=== PATIENT | female | born 1960 | race Caucasian/White ===

== ENCOUNTER 2017-08-26 10:19 | Emergency (ER) | payer MEDICAID ==
[~2017-08-26] VITALS: Ht 154.9 cm; Wt 50.0 kg
[~2017-08-26 10:19] MED LIST: ALBU8.5H8 IH; ASPI-611 PO; ATOR20TA66 PO; CARV3.122 PO; LOSA50TA37 PO
[2017-08-26 10:21] VITALS: BP 171/81
[2017-08-26] MEDS ORDERED: CLIN300C19 PO (10:34)
[2017-08-26] MEDS ORDERED: clindamycin 150mg capsule PO ONE (10:35)
== END 2017-08-26 10:42 | disposition home or self-care (01) ==
LOC: ER 10:20
DX: K04.7 Periapical abscess without sinus (principal); I25.10 Atherosclerotic heart disease of native coronary artery without angina pectoris; I10 Essential (primary) hypertension; I25.2 Old myocardial infarction; J44.9 Chronic obstructive pulmonary disease, unspecified; G89.29 Other chronic pain; F15.10 Other stimulant abuse, uncomplicated; F17.200 Nicotine dependence, unspecified, uncomplicated; Z56.0 Unemployment, unspecified; Z90.49 Acquired absence of other specified parts of digestive tract; Z98.890 Other specified postprocedural states; Z98.51 Tubal ligation status; Z88.0 Allergy status to penicillin; Z88.5 Allergy status to narcotic agent; Z79.82 Long term (current) use of aspirin; Z79.899 Other long term (current) drug therapy
CPT/HCPCS: 99283

== ENCOUNTER 2017-09-10 12:04 | Day surgery (SDC) | payer MEDICAID ==
[~2017-09-10] VITALS: Ht 154.9 cm; Wt 49.5 kg
[~2017-09-10 12:04] MED LIST changes: +CLIN300C19 PO
[2017-09-10 12:10] VITALS: BP 167/80
[2017-09-10] MEDS ORDERED: MIDAZolam 5mg/5ml vial ONE ×2 (12:16)
[2017-09-10] MEDS ORDERED: fentaNYL/PF 50MCG/1 ML 2ML syringe ONE ×2 (12:16→13:07)
[2017-09-10 13:24] VITALS: BP 139/54
[2017-09-10 13:34] VITALS: BP 103/52
[2017-09-10 13:44] VITALS: BP 115/60
[2017-09-10 13:54] VITALS: BP 114/64
== END 2017-09-10 14:10 | disposition home or self-care (01) ==
LOC: GI LAB 12:04
PROVIDERS: ATTEND Internal Medicine Gastroenterology
DX: K62.1 Rectal polyp (principal); K64.8 Other hemorrhoids; I10 Essential (primary) hypertension; F17.210 Nicotine dependence, cigarettes, uncomplicated; I25.2 Old myocardial infarction; I25.10 Atherosclerotic heart disease of native coronary artery without angina pectoris; J44.9 Chronic obstructive pulmonary disease, unspecified; F15.10 Other stimulant abuse, uncomplicated; Z79.82 Long term (current) use of aspirin; Z88.0 Allergy status to penicillin; Z88.5 Allergy status to narcotic agent; Z88.6 Allergy status to analgesic agent; Z98.51 Tubal ligation status; Z98.890 Other specified postprocedural states; Z90.49 Acquired absence of other specified parts of digestive tract; Z79.899 Other long term (current) drug therapy
CPT/HCPCS: 45380; 45385; 99152; 99153; J2250; J3010; J7030; A4620; G0500

== ENCOUNTER 2017-10-12 10:56 | Emergency (ER) | payer MEDICAID ==
[~2017-10-12] VITALS: Ht 154.9 cm; Wt 51.5 kg
[~2017-10-12 10:56] MED LIST changes: -ALBU8.5H8 IH; -CARV3.122 PO; -CLIN300C19 PO
[2017-10-12] MEDS ORDERED: ketorolac tromethamine 15mg/ml inj. IM ONE (11:45)
[2017-10-12] MEDS ORDERED: orphenadrine citrate 60mg/2ml inj. IM ONE (11:45)
[2017-10-12] MEDS ORDERED: HYDROcodone/acetaminophen 10/325mg tab PO ONE (13:25)
[2017-10-12] MEDS ORDERED: DICL100G15 TOP (13:25)
[2017-10-12] MEDS ORDERED: ondansetron 4mg rapidly disintigrating tab PO ONE (13:25)
[2017-10-12] MEDS ORDERED: CYCL-1 PO (13:25)
[2017-10-12 14:02] VITALS: BP 124/74
== END 2017-10-12 14:03 | disposition home or self-care (01) ==
LOC: ER 10:57
DX: S30.0XXA Contusion of lower back and pelvis, initial encounter (principal); M54.5 Low back pain; F17.200 Nicotine dependence, unspecified, uncomplicated; F15.90 Other stimulant use, unspecified, uncomplicated; I10 Essential (primary) hypertension; I25.10 Atherosclerotic heart disease of native coronary artery without angina pectoris; G89.29 Other chronic pain; I25.2 Old myocardial infarction; J44.9 Chronic obstructive pulmonary disease, unspecified; Z90.49 Acquired absence of other specified parts of digestive tract; Z98.890 Other specified postprocedural states; Z88.0 Allergy status to penicillin; Z88.6 Allergy status to analgesic agent; Z88.5 Allergy status to narcotic agent; Z79.82 Long term (current) use of aspirin; Z79.899 Other long term (current) drug therapy; Z56.0 Unemployment, unspecified; W01.0XXA Fall on same level from slipping, tripping and stumbling without subsequent striking against object, initial encounter; Y93.89 Activity, other specified; Y92.89 Other specified places as the place of occurrence of the external cause; Y99.8 Other external cause status
CPT/HCPCS: 72100; 72220; 96372; 99284; J1885; J2360

== ENCOUNTER 2018-01-09 15:24 | Emergency (ER) | payer MEDICAID ==
[~2018-01-09] VITALS: Ht 154.9 cm; Wt 54.8 kg
[~2018-01-09 15:24] MED LIST changes: +CYCL-1 PO; +DICL100G15 TOP; +LOSA50TA21 PO; -LOSA50TA37 PO
[2018-01-09 15:45] VITALS: BP 167/65
[2018-01-09] MEDS ORDERED: dexamethasone sod phosphate 10mg/ml inj IM STA (16:01)
[2018-01-09] MEDS ORDERED: CYCL-1 PO (16:03)
[2018-01-09] MEDS ORDERED: METH4TAB3 PO (16:03)
[2018-01-09] MEDS ORDERED: ketorolac trometh inj. 60 MG/2 ML VIAL IM ONE (16:05)
== END 2018-01-09 16:33 | disposition home or self-care (01) ==
LOC: ER 15:24
DX: M54.12 Radiculopathy, cervical region (principal); R20.2 Paresthesia of skin; I25.10 Atherosclerotic heart disease of native coronary artery without angina pectoris; I10 Essential (primary) hypertension; G89.29 Other chronic pain; F41.9 Anxiety disorder, unspecified; F32.9 Major depressive disorder, single episode, unspecified; F15.10 Other stimulant abuse, uncomplicated; Z90.49 Acquired absence of other specified parts of digestive tract; Z56.0 Unemployment, unspecified; Z98.51 Tubal ligation status; Z88.0 Allergy status to penicillin; Z88.5 Allergy status to narcotic agent; Z79.82 Long term (current) use of aspirin
CPT/HCPCS: 96372; 99284; J1100; J1885

== ENCOUNTER 2018-04-05 10:20 | Emergency (ER) | payer MEDICAID ==
[~2018-04-05] VITALS: Ht 154.9 cm; Wt 53.0 kg
[~2018-04-05 10:20] MED LIST changes: -LOSA50TA21 PO; +LOSA50TA64 PO; +METH4TAB3 PO
[2018-04-05 10:40] VITALS: BP 175/63
[2018-04-05 11:11] LABS: BASOPHILS % (AUTO) 0.5 % (0-1); EOSINOPHILS # (AUTO) 0.2 X10'3 (0-0.9); HEMATOCRIT 43.6 % (35.0-45.0); HEMOGLOBIN 14.4 g/dl (12.0-16.0); LYMPHOCYTES # (AUTO) 3.2 X10'3 (1.1-4.8); LYMPHOCYTES % (AUTO) 45.6 % (21-51); MEAN CORPUSCULAR HEMOGLOBIN 29.6 PG (27.0-31.0); MEAN CORPUSCULAR HGB CONC 33.1 % (33.0-36.5); MEAN CORPUSCULAR VOLUME 89.4 FL (78-98); MEAN PLATELET VOLUME 9.3 FL (7.4-10.4); MONOCYTES # (AUTO) 0.5 X10'3 (0-0.9); MONOCYTES % (AUTO) 6.8 % (2-12); NEUTROPHILS % (AUTO) 44.1 % (42-75); PLATELET COUNT 220 X10'3 (140-440); RED BLOOD COUNT 4.88 X10'6 (4.20-5.60); RED CELL DISTRIBUTION WIDTH 13.4 % (11.5-14.5); WHITE BLOOD COUNT 6.9 X10'3 (4.5-11.0)
[2018-04-05 11:24] LABS: ALANINE AMINOTRANSFERASE 36 U/L (12-78); ALBUMIN 3.8 G/DL (3.4-5.0); ALBUMIN/GLOBULIN RATIO 1.1 (1.1-1.5); ALKALINE PHOSPHATASE 83 IU/L (46-116); ANION GAP 8 (8-16); ASPARTATE AMINO TRANSFERASE 20 U/L (10-37); BILIRUBIN,TOTAL 0.4 MG/DL (0.1-1.0); BLOOD UREA NITROGEN 16 MG/DL (7-18); BUN/CREATININE RATIO 20.8 (6.6-38.0); CHLORIDE 104 MMOL/L (99-107); CREATININE 0.77 MG/DL (0.40-0.90); GLUCOSE 111 MG/DL (70-104); POTASSIUM 3.8 MMOL/L (3.5-5.1); SODIUM 140 MMOL/L (135-145); TOTAL CARBON DIOXIDE 27.7 MMOL/L (24-32); TOTAL PROTEIN 7.4 G/DL (6.4-8.2); eGFR 77 ML/MIN
[2018-04-05 11:25] LABS: PARTIAL THROMBOPLASTIN TIME 29 SECONDS (22-32); PROTHROMBIN TIME 10.1 SECONDS (9.0-12.0)
== END 2018-04-05 12:08 | disposition home or self-care (01) ==
LOC: ER 10:21
DX: I10 Essential (primary) hypertension (principal); J44.9 Chronic obstructive pulmonary disease, unspecified; I25.10 Atherosclerotic heart disease of native coronary artery without angina pectoris; G89.29 Other chronic pain; M54.2 Cervicalgia; F41.9 Anxiety disorder, unspecified; F32.9 Major depressive disorder, single episode, unspecified; F17.200 Nicotine dependence, unspecified, uncomplicated; F15.10 Other stimulant abuse, uncomplicated; Z56.0 Unemployment, unspecified; Z87.440 Personal history of urinary (tract) infections; Z88.0 Allergy status to penicillin; Z88.5 Allergy status to narcotic agent; Z88.6 Allergy status to analgesic agent; Z90.49 Acquired absence of other specified parts of digestive tract; Z79.82 Long term (current) use of aspirin; Z85.43 Personal history of malignant neoplasm of ovary; Z87.01 Personal history of pneumonia (recurrent)
CPT/HCPCS: 36415; 71045; 80053; 84484; 85025; 85610; 85730; 93005; 99284

== ENCOUNTER 2019-07-07 01:23 | Emergency (ER) | payer MEDICAID ==
[~2019-07-07] VITALS: Ht 154.9 cm; Wt 55.0 kg
[2019-07-07] MEDS ORDERED: ketorolac trometh inj. 60 MG/2 ML VIAL IM ONE (01:25)
[2019-07-07] MEDS ORDERED: CYCL-1 PO (01:28)
[2019-07-07] MEDS ORDERED: TRAM50TA2 PO (01:28)
[2019-07-07] MEDS ORDERED: HYDROcodone/acetaminophen 5mg/325mg tablet PO ONE (01:55)
[2019-07-07 02:00] VITALS: BP 181/96
== END 2019-07-07 02:02 | disposition home or self-care (01) ==
LOC: ER 01:24
DX: S46.812A Strain of other muscles, fascia and tendons at shoulder and upper arm level, left arm, initial encounter (principal); I25.10 Atherosclerotic heart disease of native coronary artery without angina pectoris; I10 Essential (primary) hypertension; I25.2 Old myocardial infarction; J44.9 Chronic obstructive pulmonary disease, unspecified; G89.29 Other chronic pain; F41.9 Anxiety disorder, unspecified; F32.9 Major depressive disorder, single episode, unspecified; F15.90 Other stimulant use, unspecified, uncomplicated; Z90.49 Acquired absence of other specified parts of digestive tract; Z98.51 Tubal ligation status; Z56.0 Unemployment, unspecified; Z85.43 Personal history of malignant neoplasm of ovary; Z88.0 Allergy status to penicillin; Z88.5 Allergy status to narcotic agent; Z88.6 Allergy status to analgesic agent; Z79.82 Long term (current) use of aspirin; Z79.899 Other long term (current) drug therapy; W18.39XA Other fall on same level, initial encounter; Y93.89 Activity, other specified; Y92.89 Other specified places as the place of occurrence of the external cause; Y99.8 Other external cause status
CPT/HCPCS: 73030; 96372; 99284; J1885

== ENCOUNTER 2019-09-16 15:52 | Emergency (ER) | payer MEDICAID ==
[~2019-09-16] VITALS: Ht 154.9 cm; Wt 53.0 kg
[2019-09-16 16:07] VITALS: BP 125/73
[2019-09-16] MEDS ORDERED: cyclobenzaprine 10mg tablet PO ONE (17:50)
[2019-09-16] MEDS ORDERED: LIDO700A32 TOP (18:46)
[2019-09-16] MEDS ORDERED: GABA300C PO (18:46)
== END 2019-09-16 18:57 | disposition home or self-care (01) ==
LOC: ER 15:52
DX: M54.12 Radiculopathy, cervical region (principal); R51 Headache; I25.10 Atherosclerotic heart disease of native coronary artery without angina pectoris; I10 Essential (primary) hypertension; I25.2 Old myocardial infarction; J44.9 Chronic obstructive pulmonary disease, unspecified; G89.29 Other chronic pain; F41.9 Anxiety disorder, unspecified; F15.90 Other stimulant use, unspecified, uncomplicated; Z90.49 Acquired absence of other specified parts of digestive tract; Z98.51 Tubal ligation status; Z56.0 Unemployment, unspecified; Z88.0 Allergy status to penicillin; Z88.5 Allergy status to narcotic agent; Z79.82 Long term (current) use of aspirin; Z79.899 Other long term (current) drug therapy
CPT/HCPCS: 20553; 99284

== ENCOUNTER 2022-01-04 17:12 | Inpatient (IN) | payer MEDICAID ==
[~2022-01-04] VITALS: Ht 154.9 cm; Wt 50.0 kg
[~2022-01-04 17:12] MED LIST changes: +GABA300C PO; +LIDO700A32 TOP
[2022-01-04 17:42] LABS: BASOPHILS # (AUTO) 0.1 X10'3 (0-0.2); BASOPHILS % (AUTO) 0.8 % (0-1); EOSINOPHILS # (AUTO) 0.2 X10'3 (0-0.9); EOSINOPHILS % (AUTO) 1.5 % (0-6); HEMATOCRIT 46.1 % (35.0-45.0); HEMOGLOBIN 15.4 g/dl (12.0-16.0); LYMPHOCYTES % (AUTO) 26.6 % (21-51); MEAN CORPUSCULAR HGB CONC 33.5 g/dL (33.0-36.5); MEAN CORPUSCULAR VOLUME 89.7 FL (78-98); MEAN PLATELET VOLUME 8.8 FL (7.4-10.4); MONOCYTES # (AUTO) 0.7 X10'3 (0-0.9); MONOCYTES % (AUTO) 5.9 % (2-12); NEUTROPHILS # (AUTO) 7.3 X10'3 (1.8-7.7); NEUTROPHILS % (AUTO) 65.2 % (42-75); PLATELET COUNT 205 X10'3 (140-440); RED BLOOD COUNT 5.14 X10'6 (4.20-5.60); RED CELL DISTRIBUTION WIDTH 14.1 % (11.5-14.5); WHITE BLOOD COUNT 11.2 X10'3 (4.5-11.0)
[2022-01-04 17:59] LABS: GLUCOSE 103 MG/DL (70-104)
[2022-01-04 18:00] LABS: ALANINE AMINOTRANSFERASE 27 U/L (12-78); ALBUMIN 3.9 G/DL (3.4-5.0); ALBUMIN/GLOBULIN RATIO 1.2 (1.1-1.5); ALKALINE PHOSPHATASE 85 IU/L (46-116); ANION GAP 11 (8-16); ASPARTATE AMINO TRANSFERASE 20 U/L (10-37); BILIRUBIN,TOTAL 0.3 MG/DL (0.1-1.0); BLOOD UREA NITROGEN 11 MG/DL (7-18); BUN/CREATININE RATIO 18.3 (6.6-38.0); CALCIUM 9.4 MG/DL (8.5-10.1); CHLORIDE 108 MMOL/L (99-107); POTASSIUM 3.7 MMOL/L (3.5-5.1); SODIUM 143 MMOL/L (135-145); TOTAL CARBON DIOXIDE 23.9 MMOL/L (24-32); TOTAL PROTEIN 7.2 G/DL (6.4-8.2); eGFR > 90 ML/MIN
[2022-01-04 18:12] LABS: LIPASE 71 U/L (73-393)
[2022-01-04] MEDS ORDERED: LORazepam 2 mg/ml vial IV ONE (18:15)
[2022-01-04] MEDS ORDERED: metoprolol tartrate 50mg tablet PO ONE (18:30)
[2022-01-04] MEDS ORDERED: aspirin 81mg tab.chew PO ONE (18:30)
[2022-01-04 18:35] LABS: D-DIMER < 0.19 MG/L FEU (0-0.50)
--- NOTE | 2022-01-04 19:00 | NUR ---
NITRO TAB ADMINISTERED SL AT 1900, PT REFUSED ANY ADDITIONAL DOSES, REGARDLESS OF EDUCATION OF IMPORTANCE
[2022-01-04] MEDS: nitroGLYCERIN 0.4mg SUBLingual tab SL PRN ×5 (19:02→21:01)
[2022-01-04] MEDS ORDERED: TRAM50TA2 PO (19:19)
[2022-01-04] MEDS ORDERED: heparin 25,000 UNIT/250ml bag 250 ML IV PRN (19:55)
[2022-01-04] MEDS ORDERED: heparin 10,000 units/1 ML INJ IV ONE (19:55)
[2022-01-04] MEDS ORDERED: ondansetron/PF 4mg/2ml inj IV ONE (20:00)
--- NOTE | 2022-01-04 20:15 | NUR ---
PT AGREED TO NITRO TAB SL FOR CONT C/O LEFT ARM/CHEST PAIN -11/02. NITRO 04MG TAB SL GIVEN AT 2014, 2019, 2024 WITH SL IMPROVEMENT OF LEFT ARM/CHEST PAIN
[2022-01-04 20:17] LABS: APTT 29 SECONDS (22-32)
[2022-01-04] MEDS: morphine 4 MG/ML inj SYRINge IV PRN (20:19)
[2022-01-04] MEDS ORDERED: temazepam 15mg capsule PO PRN (21:00)
[2022-01-04] MEDS ORDERED: iohexol 350MG/ML 100ml bottle IV ONE (21:43)
[2022-01-04] MEDS ORDERED: bisacodyl 10mg suppository rectal RC PRN (23:50)
[2022-01-04] MEDS ORDERED: diphenhydrAMINE 25mg capsule PO PRN (23:50)
[2022-01-04] MEDS ORDERED: acetaminophen 325mg tablet PO PRN ×2 (23:50)
[2022-01-04] MEDS ORDERED: diphenhydrAMINE 50 mg/ml inj IV PRN (23:50)
[2022-01-04] MEDS ORDERED: magnesium hydroxide 30ml (MOM) UD suspension PO PRN (23:50)
[2022-01-04] MEDS ORDERED: ondansetron/PF 4mg/2ml inj IV PRN (23:50)
[2022-01-04] MEDS ORDERED: HYDROcodone/acetaminophen 5mg/325mg tablet PO PRN (23:50)
[2022-01-04] MEDS ORDERED: mag hydrox/Alum hydrox/simeth 30ml oral suspension PO PRN (23:50)
[2022-01-04] MEDS ORDERED: acetaminophen 650mg rectal suppository RC PRN (23:50)
[2022-01-04] MEDS ORDERED: morphine 2 MG/ML inj. syringe IV PRN (23:50)
[2022-01-04] MEDS ORDERED: dextrose 5%-1/2 normal saline 1,000 ML IV SCH (23:50)
[2022-01-05] VITALS (10 sets, daily range): BP systolic 120–167; BP diastolic 57–76
[2022-01-05 00:27] LABS: MAGNESIUM 1.9 MG/DL (1.5-2.4); PHOSPHORUS 3.6 MG/DL (2.3-4.5)
[2022-01-05 02:34] LABS: BASOPHILS # (AUTO) 0.1 X10'3 (0-0.2); BASOPHILS % (AUTO) 0.8 % (0-1); EOSINOPHILS # (AUTO) 0.4 X10'3 (0-0.9); EOSINOPHILS % (AUTO) 3.8 % (0-6); HEMATOCRIT 42.2 % (35.0-45.0); HEMOGLOBIN 14.3 g/dl (12.0-16.0); LYMPHOCYTES # (AUTO) 4.2 X10'3 (1.1-4.8); LYMPHOCYTES % (AUTO) 38.8 % (21-51); MEAN CORPUSCULAR HEMOGLOBIN 30.3 PG (27.0-31.0); MEAN CORPUSCULAR HGB CONC 33.9 g/dL (33.0-36.5); MEAN CORPUSCULAR VOLUME 89.6 FL (78-98); MEAN PLATELET VOLUME 8.6 FL (7.4-10.4); MONOCYTES # (AUTO) 0.7 X10'3 (0-0.9); MONOCYTES % (AUTO) 6.2 % (2-12); NEUTROPHILS # (AUTO) 5.5 X10'3 (1.8-7.7); NEUTROPHILS % (AUTO) 50.4 % (42-75); PLATELET COUNT 198 X10'3 (140-440); RED BLOOD COUNT 4.71 X10'6 (4.20-5.60); RED CELL DISTRIBUTION WIDTH 14.4 % (11.5-14.5); WHITE BLOOD COUNT 10.9 X10'3 (4.5-11.0)
[2022-01-05] MEDS: morphine 4 MG/ML inj SYRINge IV PRN (02:47)
[2022-01-05 02:49] LABS: ALANINE AMINOTRANSFERASE 24 U/L (12-78); ALBUMIN 3.1 G/DL (3.4-5.0); ALBUMIN/GLOBULIN RATIO 1.1 (1.1-1.5); ALKALINE PHOSPHATASE 78 IU/L (46-116); ANION GAP 7 (8-16); ASPARTATE AMINO TRANSFERASE 21 U/L (10-37); BILIRUBIN,TOTAL 0.3 MG/DL (0.1-1.0); BLOOD UREA NITROGEN 16 MG/DL (7-18); BUN/CREATININE RATIO 20.3 (6.6-38.0); CALCIUM 8.7 MG/DL (8.5-10.1); CHLORIDE 110 MMOL/L (99-107); CREATININE 0.79 MG/DL (0.40-0.90); GLUCOSE 144 MG/DL (70-104); POTASSIUM 3.5 MMOL/L (3.5-5.1); SODIUM 143 MMOL/L (135-145); TOTAL CARBON DIOXIDE 26.5 MMOL/L (24-32); eGFR 74 ML/MIN
--- NOTE | 2022-01-05 06:49 | NUR ---
Report given to YASIR Dill in PCU.
--- NOTE | 2022-01-05 06:49 | NUR ---
Patient in room ED 11. I have received report from Thalia and had the opportunity to ask questions and assume patient care.
[2022-01-05] MEDS: morphine 2 MG/ML inj. syringe IV PRN ×2 (07:22→12:22)
[2022-01-05] MEDS ORDERED: pantoprazole 40mg Tablet.DR PO SCH (07:30)
[2022-01-05] MEDS ORDERED: nicotine 21mg patch - 24 hr TD SCH (08:00)
[2022-01-05] MEDS ORDERED: docusate sod 100mg capsule PO SCH (08:00)
[2022-01-05] MEDS ORDERED: regadenoson 0.4mg/5ml syringe IV PRN (08:50)
[2022-01-05] MEDS ORDERED: metoprolol tartrate 1mg/ml inj IV PRN (08:50)
[2022-01-05] MEDS ORDERED: aminophylline 500mg/20ml vial IV PRN (08:50)
[2022-01-05] MEDS ORDERED: nitroGLYCERIN 0.4mg SUBLingual tab SL PRN (08:50)
[2022-01-05] MEDS ORDERED: HYDR-3965 PO (13:40)
== END 2022-01-05 15:20 | disposition home or self-care (01) | DRG 351 ==
LOC: ER 17:12 → ED HOLD 23:51 → PCU 3S 01-05 07:23
PROVIDERS: ADMIT Family Medicine; ATTEND Internal Medicine
PROC: B32T1ZZ Computerized Tomography (CT Scan) of Left Pulmonary Artery using Low Osmolar Contrast (ICD-10-PCS; 2022-01-04)
PROC: B3201ZZ Computerized Tomography (CT Scan) of Thoracic Aorta using Low Osmolar Contrast (ICD-10-PCS; 2022-01-04)
PROC: B32S1ZZ Computerized Tomography (CT Scan) of Right Pulmonary Artery using Low Osmolar Contrast (ICD-10-PCS; 2022-01-04)
PROC: B4201ZZ Computerized Tomography (CT Scan) of Abdominal Aorta using Low Osmolar Contrast (ICD-10-PCS; 2022-01-04)
PROC: B4241ZZ Computerized Tomography (CT Scan) of Superior Mesenteric Artery using Low Osmolar Contrast (ICD-10-PCS; 2022-01-04)
PROC: B4281ZZ Computerized Tomography (CT Scan) of Bilateral Renal Arteries using Low Osmolar Contrast (ICD-10-PCS; 2022-01-04)
PROC: B42C1ZZ Computerized Tomography (CT Scan) of Pelvic Arteries using Low Osmolar Contrast (ICD-10-PCS; 2022-01-04)
PROC: B42H1ZZ Computerized Tomography (CT Scan) of Bilateral Lower Extremity Arteries using Low Osmolar Contrast (ICD-10-PCS; 2022-01-04)
PROC: B4211ZZ Computerized Tomography (CT Scan) of Celiac Artery using Low Osmolar Contrast (ICD-10-PCS; 2022-01-04)
PROC: 4A02XM4 Measurement of Cardiac Total Activity, External Approach (ICD-10-PCS; principal; 2022-01-05)
PROC: 3E033HZ Introduction of Radioactive Substance into Peripheral Vein, Percutaneous Approach (ICD-10-PCS; 2022-01-05)
DX: M19.011 Primary osteoarthritis, right shoulder (principal); I21.4 Non-ST elevation (NSTEMI) myocardial infarction; I50.23 Acute on chronic systolic (congestive) heart failure; M75.51 Bursitis of right shoulder; E78.5 Hyperlipidemia, unspecified; I11.0 Hypertensive heart disease with heart failure; E86.1 Hypovolemia; I35.1 Nonrheumatic aortic (valve) insufficiency; I73.9 Peripheral vascular disease, unspecified; J44.9 Chronic obstructive pulmonary disease, unspecified; K42.9 Umbilical hernia without obstruction or gangrene; K76.0 Fatty (change of) liver, not elsewhere classified; F15.90 Other stimulant use, unspecified, uncomplicated; G89.4 Chronic pain syndrome; F32.A Depression, unspecified; F41.9 Anxiety disorder, unspecified; M54.9 Dorsalgia, unspecified; I16.1 Hypertensive emergency; I25.10 Atherosclerotic heart disease of native coronary artery without angina pectoris; I25.2 Old myocardial infarction; Z56.0 Unemployment, unspecified; Z72.0 Tobacco use; Z79.82 Long term (current) use of aspirin; Z79.899 Other long term (current) drug therapy; Z82.49 Family history of ischemic heart disease and other diseases of the circulatory system; Z85.41 Personal history of malignant neoplasm of cervix uteri; Z85.43 Personal history of malignant neoplasm of ovary; Z88.0 Allergy status to penicillin; Z88.5 Allergy status to narcotic agent; Z90.49 Acquired absence of other specified parts of digestive tract; Z98.51 Tubal ligation status; Z71.6 Tobacco abuse counseling
CPT/HCPCS: 36415; 71045; 71275; 73030; 74174; 78452; 80053; 83690; 83735; 83880; 84100; 84443; 84484; 85025; 85379; 85730; 93017; 93306; 99285; A9500; G0378; J1644; J2060; J2270; J2405; J2785; J3490; J7042; Q9967

== ENCOUNTER 2022-07-25 00:15 | Emergency (ER) | payer MEDICAID ==
[~2022-07-25] VITALS: Ht 162.6 cm; Wt 65.9 kg
[~2022-07-25 00:15] MED LIST changes: -CYCL-1 PO; -DICL100G15 TOP; -GABA300C PO; +HYDR-3965 PO; -LIDO700A32 TOP; -METH4TAB3 PO; +TRAM50TA2 PO
[2022-07-25] MEDS ORDERED: acetaminophen 325mg tablet PO ONE (00:40)
[2022-07-25] MEDS ORDERED: ondansetron 4mg rapidly disintigrating tab PO ONE (00:40)
[2022-07-25] MEDS ORDERED: ibuprofen tablet 400 MG TABLET PO ONE (00:40)
[2022-07-25] MEDS ORDERED: HYDROcodone/acetaminophen 5mg/325mg tablet PO ONE (00:40)
[2022-07-25 00:49] LABS: ALANINE AMINOTRANSFERASE 38 U/L (12-78); ALBUMIN 3.8 G/DL (3.4-5.0); ALBUMIN/GLOBULIN RATIO 1.2 (1.1-1.5); ALKALINE PHOSPHATASE 101 IU/L (46-116); ANION GAP 9 (8-16); ASPARTATE AMINO TRANSFERASE 20 U/L (10-37); BILIRUBIN,TOTAL 0.3 MG/DL (0.1-1.0); BLOOD UREA NITROGEN 15 MG/DL (7-18); BUN/CREATININE RATIO 21.7 (10.0-20.0); CALCIUM 9.6 MG/DL (8.5-10.1); CHLORIDE 110 MMOL/L (99-107); CREATININE 0.69 MG/DL (0.40-0.90); GLUCOSE 132 MG/DL (70-104); POTASSIUM 3.3 MMOL/L (3.5-5.1); SODIUM 147 MMOL/L (135-145); eGFR 86 ML/MIN
--- NOTE | 2022-07-25 00:49 | NUR ---
Pt to CT at this time
[2022-07-25 00:56] LABS: ETHANOL < 0.010 GM/DL (0.0-0.010); MAGNESIUM 1.9 MG/DL (1.5-2.4)
[2022-07-25 01:18] LABS: APTT 26 SECONDS (22-32)
[2022-07-25 01:22] LABS: BASOPHILS # (AUTO) 0.1 X10'3 (0-0.2); BASOPHILS % (AUTO) 0.8 % (0-1); EOSINOPHILS # (AUTO) 0.3 X10'3 (0-0.9); EOSINOPHILS % (AUTO) 1.9 % (0-6); HEMATOCRIT 42.5 % (35.0-45.0); HEMOGLOBIN 14.2 g/dl (12.0-16.0); LYMPHOCYTES # (AUTO) 4.9 X10'3 (1.1-4.8); LYMPHOCYTES % (AUTO) 32.3 % (21-51); MEAN CORPUSCULAR HEMOGLOBIN 30.4 PG (27.0-31.0); MEAN CORPUSCULAR HGB CONC 33.4 g/dL (33.0-36.5); MEAN CORPUSCULAR VOLUME 90.9 FL (78-98); MONOCYTES % (AUTO) 6.5 % (2-12); NEUTROPHILS # (AUTO) 8.9 X10'3 (1.8-7.7); NEUTROPHILS % (AUTO) 58.5 % (42-75); PLATELET COUNT 239 X10'3 (140-440); RED BLOOD COUNT 4.68 X10'6 (4.20-5.60); RED CELL DISTRIBUTION WIDTH 14.7 % (11.5-14.5); WHITE BLOOD COUNT 15.1 X10'3 (4.5-11.0)
--- NOTE | 2022-07-25 01:53 | NUR ---
Report given to YASIR Healy
[2022-07-25] MEDS ORDERED: potassium cl 20mEq in 1/2 NS 1,000 ML IV ONE (01:55)
[2022-07-25] MEDS ORDERED: KEP500T PO (04:04)
--- NOTE | 2022-07-25 04:19 | NUR ---
pt ready for d/c. unable to get into contact with relatives for transportation. left voicemail on cell phone.
[2022-07-25 04:51] VITALS: BP 147/78
== END 2022-07-25 04:52 | disposition home or self-care (01) ==
LOC: ER 00:17
DX: R56.9 Unspecified convulsions (principal); I10 Essential (primary) hypertension; J44.9 Chronic obstructive pulmonary disease, unspecified; F15.20 Other stimulant dependence, uncomplicated; Z88.0 Allergy status to penicillin; Z88.5 Allergy status to narcotic agent; Z88.6 Allergy status to analgesic agent; Z90.49 Acquired absence of other specified parts of digestive tract; Z98.51 Tubal ligation status; Z56.0 Unemployment, unspecified
CPT/HCPCS: 36415; 70450; 71045; 80053; 80320; 83735; 83880; 84484; 85025; 85610; 85730; 93005; 96360; 96361; 99285; J3480

== ENCOUNTER 2024-05-15 21:20 | Emergency (ER) | payer MEDICAID ==
[~2024-05-15] VITALS: Ht 154.9 cm; Wt 68.0 kg
[~2024-05-15 21:20] MED LIST changes: +KEP500T PO
[2024-05-15 21:28] VITALS: BP 212/97; PULSE 103; TEMP 98.6; O2SAT 96
[2024-05-15 23:55] VITALS: RESP 16
== END 2024-05-16 01:21 | disposition left against medical advice (07) ==
LOC: ER 21:20
DX: I10 Essential (primary) hypertension (principal); Z53.21 Procedure and treatment not carried out due to patient leaving prior to being seen by health care provider
CPT/HCPCS: 93005

== ENCOUNTER 2024-07-15 14:36 | Outpatient (CLI) | payer MEDICAID | END 2024-07-15 23:59 | disposition home or self-care (01) | LOC: RAD 14:36 | PROVIDERS: ATTEND Family Medicine | DX: R06.02 Shortness of breath (principal); M54.6 Pain in thoracic spine | CPT/HCPCS: 72074; 93306 ==

== ENCOUNTER 2024-07-28 21:33 | Emergency (ER) | payer MEDICAID ==
[~2024-07-28] VITALS: Ht 154.9 cm; Wt 54.3 kg
[2024-07-28 21:54] LABS: BASOPHILS # (AUTO) 0.1 X10'3 (0-0.2); BASOPHILS % (AUTO) 0.7 % (0-1); EOSINOPHILS # (AUTO) 0.2 X10'3 (0-0.9); HEMATOCRIT 39.4 % (35.0-45.0); HEMOGLOBIN 13.4 g/dl (12.0-16.0); LYMPHOCYTES # (AUTO) 3.6 X10'3 (1.1-4.8); MEAN CORPUSCULAR HGB CONC 33.9 g/dL (33.0-36.5); MEAN CORPUSCULAR VOLUME 88.6 FL (78-98); MEAN PLATELET VOLUME 8.1 FL (7.4-10.4); MONOCYTES # (AUTO) 0.8 X10'3 (0-0.9); MONOCYTES % (AUTO) 8.7 % (2-12); NEUTROPHILS % (AUTO) 51.6 % (42-75); PLATELET COUNT 347 X10'3 (140-440); RED BLOOD COUNT 4.45 X10'6 (4.20-5.60); RED CELL DISTRIBUTION WIDTH 13.9 % (11.5-14.5); WHITE BLOOD COUNT 9.6 X10'3 (4.5-11.0)
--- NOTE | 2024-07-28 21:54 | Physician Documentation ---
History of Present Illness ~ Chief Complaint: Difficulty Breathing Stated Complaint: SOB Time Seen by MD: 21:49 Primary Medical Doctor: [facility] HPI Patient presents to the emergency room for evaluation of shortness of breath and dizziness. Patient was history of aortic stenosis in his working with her hand paster regarding placement. She was seen here recently and had an echo performed which showed a good ejection fraction. Patient was states she was lying on her couch when she suddenly began feeling short of breath. She also endorses some right upper extremity numbness however this comes and goes and it was located in her median distribution with a positive Tinel's sign. No weakness. Regarding the patient was dizziness she denies symptoms vertigo but endorses symptoms of feeling generally weak like her legs are going to give out and she would pass out. Patient was have history of high blood pressure but reports no changes of her medications. Denies fevers dysuria cough or abdominal pain. Medication Reconciliation Allergies: Coded Allergies: Penicillins (Unverified Allergy, Unknown, 07/28/24) codeine (Verified Allergy, Unknown, 07/28/24) ibuprofen (Verified Adverse Reaction, Intermediate, VOMITING, 07/28/24) Scheduled Aspirin (Aspir 81), 1 TAB PO DAILY, (Reported) Atorvastatin Calcium (LIPITOR tablet), 20 MG PO DAILY, (Reported) Levetiracetam (Keppra), 1 TAB PO Q12H Losartan Potassium (Losartan Potassium), 1 TAB PO DAILY, (Reported) Tramadol HCl (Tramadol HCl), 1 TABLET PO BID, (Reported) Scheduled PRN Hydrocodone Bit/Acetaminophen 5/325 MG ([place] 5/325 MG), 1 TAB PO Q6H PRN for pain Past Medical History Past Medical History: Coronary Artery Disease, Hypertension, Myocardial Infarction, COPD, Pneumonia, UTI, Chronic Pain, Chronic Back Pain, Extremity Fracture, Cervical Cancer/Dysplasia, Ovarian Cancer, Anxiety, Depression Past Surgical History: cholecystectomy, orthopedic surgeries, tubal ligation Other Past Family History: strong cardiac F.H. father 3xcabg, brother of [place] Alcohol Use: None Drug Use: methamphetamine Lives with: Spouse Lives In: Home Occupation: unemployed Review of Systems ROS All review of systems negative except as per HPI Physical Exam Vital Signs: Temperature: 97.8, Source: Oral, Heart Rate: 72, Respiratory Rate: 21, BP: 92/59, Pulse Oximetry: 100, Weight: 54.320 Oxygen Flow Rate: 0 Physical Exam General: Patient is awake, alert, oriented x4 in no acute distress Head: Normocephalic and atraumatic. Eyes: Conjunctival normal. EOMI. PERRL. ENT: Mucous membranes moist. Neck: Supple, trachea is midline. Chest: Clear to auscultation bilaterally without rales, rhonchi, or wheezes. There is no accessory muscle use or retractions. Cardiac: RRR without murmurs, gallops, or rubs. Abd: Soft, nondistended, nontender, with normoactive bowel sounds. No guarding, rebound, or rigidity. Extremities: Normal strength. Normal range of motion. No deformities or edema. Positive Tinel's sign on right wrist Progress Results/Orders Results/Orders Orders - ALBAN RIOS MD Chest,Single View (07/28/24 21:43) Monitor (07/28/24 21:44) Saline Lock (07/28/24 21:44) Oxygen (07/28/24 21:44) Electrocardiogram (07/28/24 21:44) Hs Troponin I W Calculations (07/28/24 23:44) Hs Troponin I W Calculations (07/29/24 00:44) Completed Orders - ALBAN RIOS MD Chest,Single View (07/28/24 21:43) Cbc/Diff (07/28/24 21:44) PBNP (07/28/24 21:44) CMP (07/28/24 21:44) Hs Troponin I W Calculations (07/28/24 21:44) Procalcitonin (07/28/24 21:54) Normal Saline 1000ml (Sodium Chloride 10 (07/28/24 22:10) Ua W/Microscopic, Cult If Ind (07/28/24 22:10) Medications Received in ER Medications (Trade) Dose Ordered Sig/Lakeshia Route PRN Reason Start Time Stop Time Status Last Admin Dose Admin Sodium Chloride 1,000 ml @ 1,000 mls/hr ONCE ONCE IV 07/28/24 22:10 07/28/24 23:09 DC 07/28/24 22:17 1,000 MLS/HR Vital Signs 07/28/24 07/28/24 07/28/24 21:36 21:53 22:06 Temp 97.8 97.8 Pulse 72 64 Resp 21 14 17 B/P (MAP) 92/59 77/35 (49) Pulse Ox 100 96 O2 Flow Rate 0 0 Laboratory Tests Test 07/28/24 21:47 07/28/24 22:10 07/28/24 23:43 White Blood Count 9.6 Red Blood Count 4.45 Hemoglobin 13.4 Hematocrit 39.4 Mean Corpuscular Volume 88.6 Mean Corpuscular Hemoglobin 30.0 Mean Corpuscular Hemoglobin Concent 33.9 Red Cell Distribution Width 13.9 Platelet Count 347 Mean Platelet Volume 8.1 Neutrophils (%) (Auto) 51.6 Lymphocytes (%) (Auto) 37.0 Monocytes (%) (Auto) 8.7 Eosinophils (%) (Auto) 2.0 Basophils (%) (Auto) 0.7 Neutrophils # (Auto) 5.0 Lymphocytes # (Auto) 3.6 Monocytes # (Auto) 0.8 Eosinophils # (Auto) 0.2 Basophils # (Auto) 0.1 CBC Comment Sodium Level 142 Potassium Level 3.5 Chloride Level 108 H Carbon Dioxide Level 23.7 L Anion Gap 10 Blood Urea Nitrogen 27 H Creatinine 1.31 H Estimated GFR/1.73 m2 41 BUN/Creatinine Ratio 20.6 H Glucose Level 117 H Calcium Level 9.1 Total Bilirubin 0.5 Aspartate Amino Transf (AST/SGOT) 21 Alanine Aminotransferase (ALT/SGPT) 28 Alkaline Phosphatase 120 H Troponin I High Sensitivity 10 Pro-B-Type Natriuretic Peptide 79 Total Protein 7.0 Albumin 3.7 Globulin 3.3 Albumin/Globulin Ratio 1.1 Procalcitonin < 0.05 Chemistry Comments Urine Specimen Description Cln catch midstream Urine Color Yellow Urine Clarity Cloudy Urine pH 5.5 Urine Specific [place] 1.025 Urine Protein Trace Urine Glucose (UA) Negative Urine Ketones Trace H Urine Occult Blood Negative Urine Nitrite Negative Urine Bilirubin Negative Urine Urobilinogen 0.2 Urine Leukocyte Esterase Trace H Urine RBC 0-2 Urine WBC 5-10 H Urine Squamous Epithelial Cells Many Urine Bacteria 3+ Urine Culture Indicated Rejected for culture Volume Urine Centrifuged 10 ml Urine Comment EKG/XRAY/CT/US/VASC/MRI EKG : Additional Comment EKG interpreted by myself shows time of 2140, rate 70, sinus rhythm, normal axis, no ST changes Medical Decision Making Findings Patient was passed the road test. Patient presented to the emergency room with feeling dizzy and after further investigation she felt as if she was going to pass out/presyncopal. Patient noted to have hypotension which responded to IV fluids. Patient was kidney function is mildly decreased from prior visit I do believe she was suffering from dehydration causing her symptoms. Alternative diagnosis that it was considered was ACS, cardiac arrhythmia, vertigo, stroke. Neurologic exam is reassuring and troponins are negative. Patient was received IV fluids in his feeling better and she has been instructed to double her hydration efforts. Departure Disposition: HOME / SELF CARE / HOMELESS Impression: Primary Impression: Dehydration Condition: Improved Discharge Instructions: Dehydration, Adult, [id number] Additional Instructions: Double your hydration efforts Referrals: NO PRIMARY CARE PROVIDER (PCP) Education Educated: Patient Educated regarding: diagnosis, treatment, need for follow up Signature Scribe Signature: No scribe Attestation: The note accurately reflects work and decisions made by me.Alban Rios MD 07/28/24 23:53 ALBAN RIOS MD July 28, 2024 21:54
[2024-07-28 22:13] LABS: ALANINE AMINOTRANSFERASE 28 U/L (12-78); ALBUMIN 3.7 G/DL (3.4-5.0); ALBUMIN/GLOBULIN RATIO 1.1 (1.1-1.5); ALKALINE PHOSPHATASE 120 IU/L (46-116); ANION GAP 10 (8-16); ASPARTATE AMINO TRANSFERASE 21 U/L (10-37); BILIRUBIN,TOTAL 0.5 MG/DL (0.1-1.0); BLOOD UREA NITROGEN 27 MG/DL (7-18); BUN/CREATININE RATIO 20.6 (10.0-20.0); CALCIUM 9.1 MG/DL (8.5-10.1); CHLORIDE 108 MMOL/L (99-107); CREATININE 1.31 MG/DL (0.40-0.90); GLUCOSE 117 MG/DL (70-104); POTASSIUM 3.5 MMOL/L (3.5-5.1); SODIUM 142 MMOL/L (135-145); TOTAL CARBON DIOXIDE 23.7 MMOL/L (24-32); eCRCL 33 ML/MIN; eGFR 41 ML/MIN
[2024-07-28] MEDS: normal saline 1000ml 1,000 ML IV ONE (22:17)
[2024-07-28 22:20] LABS: PRO BRAIN NATRIURETIC PEPTIDE 79 PG/ML (0-125)
[2024-07-28 22:24] LABS: BILIRUBIN,URINE NEGATIVE (Neg); CLARITY,URINE CLOUDY (Clear); COLOR,URINE YELLOW (Yellow); GLUCOSE, URINE NEGATIVE (Neg); KETONES,URINE TRACE mg/dl (Neg); LEUKOCYTE ESTERASE ,URINE TRACE (Neg); NITRITES, URINE NEGATIVE (Neg); OCCULT BLOOD,URINE NEGATIVE (Neg); PH,URINE 5.5 (4.8-8.0); PROTEIN,URINE TRACE mg/dl (Neg); UROBILINOGEN,URINE 0.2 E.U/dL (0.2-1.0)
[2024-07-28 22:27] LABS: UA COLLECTION TYPE CLN CATCH MIDSTREAM
[2024-07-28 22:31] LABS: BACTERIA,URINE 3+ /HPF (Neg); RBC,URINE 0-2 /HPF (0-2); SQUAMOUS EPITHELIAL CELL,UR MANY /LPF (FEW)
--- NOTE | 2024-07-28 23:01 | RADIOLOGY REPORT ---
CHEST RADIOGRAPH Indication: CP Technique: Single frontal view of the chest was obtained Comparison: DI CHEST,SINGLE VIEW on DOS: 06/09/24, CHEST,SINGLE VIEW on DOS: 07/25/22, CHEST,SINGLE VIEW on DOS: 01/04/22 FINDINGS: Lines and Tubes: None Lungs: No focal consolidation. Pleura: No effusion. No pneumothorax. Cardiomediastinal contours: Unremarkable Bones: No acute osseous abnormality. IMPRESSION: 1. No acute cardiopulmonary disease.
[2024-07-28 23:52] VITALS: BP 129/69; PULSE 66; RESP 16; TEMP 97.8; O2SAT 100
--- NOTE | 2024-07-29 06:21 | ELECTROCARDIOGRAPH REPORT ---
[facility] Test Date: 2024-07-28 Test Time: 21:40:53 Pat Name: ANDRZEJ AG Department: EMERGENCY ROOM [id number] Room: Gender: F Developmental Psychologist: STEVEN : 1960 Requested By: ANISHA TILLMAN Order Number: [id number] Reading MD: Dr. Collins Corrigan Measurements Intervals [place] Rate: 70 P: 108 WV: 191 QRS: 71 QRSD: 99 T: 65 QT: 414 QTc: 447 Interpretive Statements Sinus rhythm Electronically Signed On 07-30-2024 15:44:[address] Collins Corrigan Please click the below link to view image of tracing.
== END 2024-07-28 23:58 | disposition home or self-care (01) ==
LOC: ER 21:34
DX: E86.0 Dehydration (principal); R06.02 Shortness of breath; R42 Dizziness and giddiness; I10 Essential (primary) hypertension; I25.10 Atherosclerotic heart disease of native coronary artery without angina pectoris; F41.9 Anxiety disorder, unspecified; F32.A Depression, unspecified; J44.9 Chronic obstructive pulmonary disease, unspecified; F15.90 Other stimulant use, unspecified, uncomplicated; Z85.43 Personal history of malignant neoplasm of ovary; Z88.0 Allergy status to penicillin; Z88.5 Allergy status to narcotic agent; Z88.6 Allergy status to analgesic agent; Z90.49 Acquired absence of other specified parts of digestive tract; Z98.51 Tubal ligation status
CPT/HCPCS: 36415; 71045; 80053; 81001; 83880; 84145; 84484; 85025; 93005; 96360; 99285; J7030